=== PATIENT | female | born 1990 | race Hispanic/Latino ===

== ENCOUNTER 2017-12-22 19:49 | Emergency (ER) | payer MEDICAID, OTHER ==
[2017-12-22] MEDS ORDERED: ACETAMINOPHEN EXTRA STRENGTH 500 MG TABLET ONE (20:27)
== END 2017-12-22 21:05 | disposition home or self-care (01) ==
LOC: EDH 19:49
DX: S43.402A Unspecified sprain of left shoulder joint, initial encounter (principal); S60.051A Contusion of right little finger without damage to nail, initial encounter; Z72.0 Tobacco use; X58.XXXA Exposure to other specified factors, initial encounter; Y93.89 Activity, other specified; Y92.89 Other specified places as the place of occurrence of the external cause; Y99.8 Other external cause status
CPT/HCPCS: 73030; 73140